=== PATIENT | male | born 1970 | race Caucasian/White ===

== ENCOUNTER 2022-05-16 19:48 | Emergency (ER) | payer BC, OTHER ==
[~2022-05-16] VITALS: Ht 175.3 cm; Wt 116.1 kg
[2022-05-16] MEDS ORDERED: TRIAMCINOLONE ACETONIDE 40 MG/ML 1ML VIAL ONE (22:38)
[2022-05-16] MEDS ORDERED: TRIAMCINOLONE ACETONIDE 40 MG/ML 1ML VIAL SQ ONE (23:00)
[2022-05-16] MEDS ORDERED: DICL75TA5 PO (23:30)
[2022-05-16] MEDS ORDERED: METH-662 PO (23:30)
[2022-05-16 23:40] VITALS: BP 141/84
== END 2022-05-16 23:42 | disposition home or self-care (01) ==
LOC: EDH 19:48
DX: S43.401A Unspecified sprain of right shoulder joint, initial encounter (principal); E11.9 Type 2 diabetes mellitus without complications; J45.909 Unspecified asthma, uncomplicated; I10 Essential (primary) hypertension; X58.XXXA Exposure to other specified factors, initial encounter; Y93.89 Activity, other specified; Y92.89 Other specified places as the place of occurrence of the external cause; Y99.8 Other external cause status; Z98.890 Other specified postprocedural states
CPT/HCPCS: 99284; 73030; 96372; J3301